=== PATIENT | male | born 2000 | race Caucasian/White ===

== ENCOUNTER 2018-03-16 18:13 | Emergency (ER) | payer OTHER ==
[~2018-03-16] VITALS: Ht 180.3 cm; Wt 68.0 kg
[2018-03-16] MEDS ORDERED: IBUPROFEN 800 MG TABLET PO ONE (19:15)
[2018-03-16] MEDS ORDERED: BACITRACIN 0.9 GM PACKET OINTMENT TP ONE (19:15)
[2018-03-16] MEDS ORDERED: PERTUSS(ACELL),DIPH,TET VAC/PF 0.5 ML VIAL IM ONE (19:15)
[2018-03-16 20:13] VITALS: BP 124/71
== END 2018-03-16 20:26 | disposition home or self-care (01) ==
LOC: EMS 18:14
DX: S90.31XA Contusion of right foot, initial encounter (principal); S90.811A Abrasion, right foot, initial encounter; S80.211A Abrasion, right knee, initial encounter; S50.311A Abrasion of right elbow, initial encounter; S60.512A Abrasion of left hand, initial encounter; S60.511A Abrasion of right hand, initial encounter; M54.5 Low back pain; V29.9XXA Motorcycle rider (driver) (passenger) injured in unspecified traffic accident, initial encounter; Y93.89 Activity, other specified; Y92.488 Other paved roadways as the place of occurrence of the external cause; Y99.8 Other external cause status
CPT/HCPCS: 29540; 90471; 90715; 99284